=== PATIENT | female | born 1990 | race Caucasian/White ===

== ENCOUNTER 2021-12-14 15:55 | Outpatient (REF) | payer OTHER, SELFPAY ==
[2021-12-15 03:11] LABS: CT PCR NOT DETECTED (Not Detect.); NG PCR NOT DETECTED (Not Detect.)
[2021-12-15 09:24] LABS: BV Int Neg Control Negative (Negative); BV Int Pos Control Positive (Positive)
[2021-12-17 06:46] LABS: HPV mRNA E6/E7 rflx Not Detected (Not Detected)
== END 2021-12-14 15:56 | disposition home or self-care (01) ==
LOC: HO.LAB 15:55
PROVIDERS: Visit Provider Advanced Practice Midwife
DX: Z01.419 Encounter for gynecological examination (general) (routine) without abnormal findings (principal); Z11.3 Encounter for screening for infections with a predominantly sexual mode of transmission; Z11.51 Encounter for screening for human papillomavirus (HPV)
CPT/HCPCS: 87480; 87491; 87510; 87591; 87624; 87660; 88142

== ENCOUNTER 2025-02-07 12:08 | Outpatient (REF) | payer OTHER, SELFPAY ==
[2025-02-07 13:09] LABS: MANUAL DIFF FLAG NO
[2025-02-07 13:19] LABS: Hematocrit 32.1 % (37.0-47.0); Hemoglobin 10.2 g/dl (12.0-16.0); Imm Gran Abs Auto 0.02 X10*3/uL (0.00-0.03); Imm Gran Pct Auto 0.3 % (0.0-0.4); Lymphocytes Absolute Auto 1.1 X10*3/uL (1.2-4.9); Mean Corpuscular HGB Conc 31.8 g/dl (31.0-35.0); Mean Corpuscular Hemoglobin 25.0 pg (27.0-33.0); Mean Corpuscular Volume 78.7 fL (80.0-98.0); NRBC Abs Auto 0.000 X10*3/uL (0.0-0.012); NRBC Pct Auto 0.0 /100WBC (0.0-0.2); Platelet Count 481 X10*3/uL (160-400); Red Blood Count 4.08 X10*6/uL (4.20-5.50); White Blood Count 6.0 X10*3/uL (4.8-10.8)
[2025-02-07 13:41] LABS: Alanine Aminotransferase < 6 U/L (0-31); Albumin Level 3.0 g/dL (3.5-5.0); Alkaline Phosphatase 55 U/L (39-117); Anion Gap 11 (12-20); Aspartate Amino Transferase 20 U/L (5-31); Blood Urea Nitrogen 8 mg/dL (9-16); Calcium 8.5 mg/dL (8.4-10.2); Carbon Dioxide 28 mmol/L (22-29); Chloride 101 mmol/L (96-108); Estimated Glomerular Filt Rate > 60; Potassium 3.6 mmol/L (3.3-5.1); Sodium 136 mmol/L (135-145); Total Protein 7.8 g/dL (6.5-8.0)
== END 2025-02-07 12:09 | disposition home or self-care (01) ==
LOC: HO.10HDL 12:08
PROVIDERS: Visit Provider Internal Medicine
DX: Z00.00 Encounter for general adult medical examination without abnormal findings (principal); Z13.31 Encounter for screening for depression; R53.83 Other fatigue; M54.2 Cervicalgia; K64.4 Residual hemorrhoidal skin tags; E66.9 Obesity, unspecified
CPT/HCPCS: 36415; 80053; 85025

== ENCOUNTER 2025-02-20 14:47 | Outpatient (REF) | payer OTHER, SELFPAY ==
[2025-02-20 15:12] LABS: MANUAL DIFF FLAG NO
[2025-02-20 15:32] LABS: Hematocrit 31.4 % (37.0-47.0); Hemoglobin 9.6 g/dl (12.0-16.0); Imm Gran Abs Auto 0.02 X10*3/uL (0.00-0.03); Imm Gran Pct Auto 0.3 % (0.0-0.4); Lymphocytes Absolute Auto 1.2 X10*3/uL (1.2-4.9); Mean Corpuscular HGB Conc 30.6 g/dl (31.0-35.0); Mean Corpuscular Hemoglobin 24.0 pg (27.0-33.0); Mean Corpuscular Volume 78.5 fL (80.0-98.0); NRBC Abs Auto 0.000 X10*3/uL (0.0-0.012); NRBC Pct Auto 0.0 /100WBC (0.0-0.2); Platelet Count 314 X10*3/uL (160-400); Red Blood Count 4.00 X10*6/uL (4.20-5.50); White Blood Count 7.8 X10*3/uL (4.8-10.8)
[2025-02-20 16:16] LABS: Alanine Aminotransferase < 6 U/L (0-31); Albumin Level 3.2 g/dL (3.5-5.0); Alkaline Phosphatase 62 U/L (39-117); Anion Gap 13 (12-20); Aspartate Amino Transferase 20 U/L (5-31); Blood Urea Nitrogen 8 mg/dL (9-16); Calcium 8.5 mg/dL (8.4-10.2); Carbon Dioxide 25 mmol/L (22-29); Chloride 103 mmol/L (96-108); Estimated Glomerular Filt Rate > 60; Iron 23 mcg/dL (30-160); Percent Iron Saturation 15 % (15-50); Potassium 3.8 mmol/L (3.3-5.1); Sodium 137 mmol/L (135-145); Total Iron Binding Capacity 156 mcg/dL (228-428); Total Protein 8.3 g/dL (6.5-8.0); Unsaturated Iron Binding 133 ug/dL
[2025-02-20 16:35] LABS: Folate 10.7 ng/mL (> or = 4.0); Vitamin B12 465 pg/mL (200-900)
[2025-02-20 16:36] LABS: Thyroid Stimulating Hormone 0.63 uIU/mL (0.32-4.0)
--- OUTSIDE RECORDS SUMMARY | 2025-02-20 17:05 | XMS_ITS ---
Author Name [facility] Organization Unknown Care Team Organization Name Specialty Phone Email Start Date End Da [facility] ([facility] 2023 [facility] 04/21/2022
--- OUTSIDE RECORDS SUMMARY | 2025-02-20 17:06 | XMS_ITS | Patient Health Record ---
Author Organization [facility] Address [address] [place] [address] Care Team Providers Care Credit Risk Manager Name Role Phone Rowan Hannah Primary Care Provider Isma Ricahrds [phone] Allergies No Known Allergies Results Component Value Reference Range Notes T4 Thyroxine (Not yet review ed by provider) Interpretation: Performing Lab:[facility], [address] [place] [phone] Notes/Report: T4 Thyroxine 7.8 4.5-12.0 ug/dL Complete Blood Count Auto Di ff (Not yet reviewed by provider) Interpretation: Performing Lab:[facility], [address] [place] [phone] Notes/Report: White Blood Count 7.8 4.8-10.8 X10*3/uL Red Blood Count 4.00 4.20-5.50 X10*6/uL Hemoglobin 9.6 12.0-16.0 g/dl Hematocrit 31.4 37.0-47.0 % Mean Corpuscular Volume 78.5 80.0-98.0 fL Mean Corpuscular Hemoglobin 24.0 27.0-33.0 pg Mean Corpuscular HGB Conc 30.6 31.0-35.0 g/dl Red Cell Distribution Width 15.4 11.0-16.0 % Platelet Count 314 160-400 X10*3/uL Mean Platelet Volume 10.2 9.4-12.3 fL Neutrophils Percent Auto 71.9 45-73 % Imm Gran Pct Auto 0.3 0.0-0.4 % Lymphocytes Percent Auto 15.0 20-40 % Monocytes Percent Auto 9.0 2-11 % Eosinophils Percent Auto 3.2 0-4 % Basophils Percent Auto 0.6 0-2 % NRBC Pct Auto 0.0 0.0-0.2 /100WBC Neutrophils Absolute Auto 5.6 2.0-8.3 x10*3/u L Imm Gran Abs Auto 0.02 0.00-0.03 X10*3/uL Lymphocytes Absolute Auto 1.2 1.2-4.9 X10*3/u L Monocytes Absolute Auto 0.7 0.1-1.2 X10*3/uL Eosinophils Absolute Auto 0.3 0.0-0.4 X10*3/u L Basophils Absolute Auto 0.1 0.0-0.2 X10*3/uL NRBC Abs Auto 0.000 0.0-0.012 X10*3/uL Erythrocyte Sedimentation Ra te (Not yet reviewed by provider) Interpretation: Performing Lab:[address] [phone] Notes/Report: Erythrocyte Sedimentation Rate 92 0-20 MM/HR Patients with polycythemia and many hemoglobin abnormalities may have depressed sed rates whereas patients with anemia may have elevated sed rates. Comprehensive Met. Panel (No t yet reviewed by provider) Interpretation: Performing Lab:[address] [address] Notes/Report: Sodium 137 135-145 mmol/L Potassium 3.8 3.3-5.1 mmol/L Slight Hemoly sis.Interpret result with caution. Chloride 103 96-108 mmol/L Carbon Dioxide 25 22-29 mmol/L Anion Gap 13 12-20 Blood Urea Nitrogen 8 9-16 mg/dL Creatinine 0.93 0.5-1.4 mg/dL Estimated Glomerular Filt Rate > 60 Chronic Kidney Disease: Estimated GFR < 60 mL/min/1.73m2 Severe Kidney Disease: Estimated GFR < 15 mL/min/1.73m2 Glucose Random 81 60-115 mg/dL Calcium 8.5 8.4-10.2 mg/dL Bilirubin Total 0.3 0.0-1.0 mg/dL Aspartate Amino Transferase 20 5-31 U/L Slight Hemolysis.Interpret result with caution. Alanine Aminotransferase < 6 0-31 U/L Total Protein 8.3 6.5-8.0 g/dL Albumin Level 3.2 3.5-5.0 g/dL Alkaline Phosphatase 62 39-117 U/L Liver Panel (Not yet reviewe d by provider) Interpretation: Performing Lab:[address] [address] Notes/Report: Bilirubin Direct 0.1 0.0-0.5 mg/dL IRON PROFILE (Not yet review ed by provider) Interpretation: Performing Lab:[address] [address] Notes/Report: Iron 23 30-160 mcg/dL Slight Hemolys is.Interpret result with caution. Total Iron Binding Capacity 156 228-428 mcg/d L Percent Iron Saturation 15 15-50 % Unsaturated Iron Binding 133 C Reactive Protein (Not yet reviewed by provider) Interpretation: Performing Lab:[address] [address] Notes/Report: C Reactive Protein 6.27 < or = 0.50 mg/dL Vitamin B12 (Not yet reviewe d by provider) Interpretation: Performing Lab:[address] [address] Notes/Report: Vitamin B12 465 200-900 pg/mL NORMAL 200-900 PG/ML INDETERMINATE 160-199 PG/ML DEFICIENT < 160 PG/ML Folate (Not yet reviewed by provider) Interpretation: Performing Lab:[address] [address] Notes/Report: Folate 10.7 > or = 4.0 ng/mL Reference Values: > or = 4.0 ng/mL < 4.0 ng/mL suggests folate deficiency Methotrexate, aminopterin and folinic acid (leucovorin) are chemotherapeutic agents whose molecular structures are similar to folate; therefore, the Staff Development Manager folate assay cannot be used for patients using these drugs. Thyroid Stimulating Hormone (Not yet reviewed by provider) Interpretation: Performing Lab:[address] [address] Notes/Report: Thyroid Stimulating Hormone 0.63 0.32-4.0 uIU/ mL TSH 3rd Generation ([facility]) Reason For Referral No Information Medications Medication SIG (Take, Route, Fr equency, [...] Status W/U Status Risk Notes Problem Diarrhea (58783197) Diarrhea (R19.7) Active confirmed Problem Weight loss (074681168) Weight loss (R63.4) Active confirmed Problem Fatigue (15933756) Other fatigue (R53.83) Active confirmed Vital Signs Temperature 98.3 degrees Fahrenheit 02/20/2025 Blood pressure diastolic 01 mm Hg 02/20/2025 Height 62 in 02/20/2025 Blood pressure systolic 001 mm Hg 02/20/2025 Weight 139.4 lbs 02/20/2025 BMI 25.49 kg/m2 02/20/2025 Procedures Procedure Date Ordered Date Performed Result Body Sit e COLONOSCOPY 02/20/2025 N/A Encounters Encounter Location Date Provider Diagnosis [facility] [address] [place] [address] 02/20/2025 Isma Sharp Diarrhea R19.7 ; Weight loss R63.4 and Other fatigue R53.83 Assessments Encounter Date Diagnosis (ICD Code) Assessment Notes Treatment Notes Treatment Clinical Notes Section Notes 02/20/2025 Diarrhea (ICD-10 - R19.7) 02/20/2025 Weight loss (ICD-10 - R63.4) 02/20/2025 Other fatigue (ICD-10 - R53.83) Plan Of Treatment Pending Test Test Name Order Date COLONOSCOPY 02/20/2025 CHEM 7 PROFILE 02/20/2025 LIVER PROFILE 02/20/2025 TSH (THYROID STIMULATING HORMONE) 2024 IRON + IBC (FE) 02/20/2025 CRP 02/20/2025 CBC w DIFF 02/20/2025 SED RATE (ESR) 02/20/2025 Complete Blood Count Auto Diff Erythrocyte Sedimentation Rate Comprehensive Met. Panel 02/20/2025 Liver Panel 02/20/2025 IRON PROFILE 02/20/2025 C Reactive Protein 02/20/2025 Vitamin B12 and Folate 02/20/2025 Vitamin B12 02/20/2025 Folate 02/20/2025 T4 Thyroxine 02/20/2025 Thyroid Stimulating Hormone 02/20/2025 CDiff with Reflex to PCR 02/20/2025 Giardia Ag Stool EIA 02/20/2025 Calprotectin, Fecal 02/20/2025 GI PANEL 02/20/2025 Celiac Disease Panel 02/20/2025 Next Appt Details Provider Name:Isma Lowery Sharp , 04/26/2025 02:30:00 PM, [address] [place] [address] , [place], [place], [phone], Insurance Providers Payer Name Payer Address Payer Phone Subscriber Number Group Number Insured Name Patient Relationship to Insured Coverage Start Date Coverage End Date [facility] [address] [facility] [place] [phone] [id number] REMINGTON LR Self - patient is the insured
[2025-02-21 16:53] LABS: Immunoglobulin A 785 mg/dL (47-310)
== END 2025-02-20 14:48 | disposition home or self-care (01) ==
LOC: HO.LAB 14:47
PROVIDERS: PCP Internal Medicine; Visit Provider Internal Medicine
DX: R53.83 Other fatigue (principal); R19.7 Diarrhea, unspecified; R63.4 Abnormal weight loss; Z13.0 Encounter for screening for diseases of the blood and blood-forming organs and certain disorders involving the immune mechanism; Z01.84 Encounter for antibody response examination
CPT/HCPCS: 36415; 80053; 82248; 82607; 82746; 82784; 83540; 84436; 84443; 85025; 85652; 86140; 86364

== ENCOUNTER 2025-02-22 12:51 | Outpatient (REF) | payer OTHER, SELFPAY ==
[2025-02-22 15:15] LABS: CDiff Gene PCR NEGATIVE (Negative)
[2025-02-22 16:05] LABS: E. coli EAEC Not Detected (Not Detect.); E. coli EPEC Not Detected (Not Detect.); E. coli ETEC Not Detected (Not Detect.); E. coli STEC Not Detected (Not Detect.); Shigella sp./EIEC Not Detected (Not Detect.)
[2025-02-28 21:09] LABS: Calprotectin, Fecal >8000 mcg/g
== END 2025-02-22 12:52 | disposition home or self-care (01) ==
LOC: HO.LNP 12:51
PROVIDERS: Visit Provider Internal Medicine
DX: R53.83 Other fatigue (principal); R19.7 Diarrhea, unspecified; R63.4 Abnormal weight loss
CPT/HCPCS: 83993; 87329; 87493; 87507

== ENCOUNTER 2025-02-25 12:35 | Day surgery (SDC) | payer OTHER, SELFPAY ==
--- OUTSIDE RECORDS SUMMARY | 2025-02-20 09:40 | XMS_ITS ---
Author Organization [facility] Address [address] [place] [address] Care Team Providers Care Cut Off Worker Name Role Phone Rowan Hannah Primary Care Provider UnavailIsma Tee [phone] Allergies No Known Allergies Results Component Value Reference Range Notes Celiac Disease Panel (Not ye t reviewed by provider) Interpretation: Performing Lab:[facility], [address] [place] [phone] Notes/Report: Immunoglobulin A 785 47-310 mg/dL THIS TEST WAS PERFORMED AT: [facility] [address] [place] [phone] DANIA LOVE MD Transglutaminase IgA <1.0 Value Interpretation ----- <15.0 Antibody not detected > or = 15.0 Antibody detected Celiac Disease Panel Interp. SEE NOTE No serological evidence of celiac disease. Total serum IgA is elevated. Consider mucosal inflammatory conditions or underlying gammopathy. T4 Thyroxine Reviewed date:02/20/2025 05:51:49 PM Interpretation: Performing Lab:[facility], [address] [place] [phone] Notes/Report: T4 Thyroxine 7.8 4.5-12.0 ug/dL REASON FOR VISIT Patient presents today for diarrhea Medications Medication SIG (Take, Route, Fr equency, Duration) Notes Start Date End Date Status Loperamide HCl 2 MG 1 or 2 Orally every 4 to 6 hours if needed for diarrhea for 30 days 02/20/2025 Active Immunizations Vaccine Route Administration Date Status Comme nts Influenza Unknown 02/20/2025 Refused Social History Tobacco Use: Social History Observation Description Date Details (start date - stop date) Never Smoker NA - NA Tobacco Control (Standard) Question Answer Notes Tobacco use: Nonsmoker AUDIT-C (Standard) Question Answer Notes Did you have a drink contain ing alcohol in the past year? Yes How often did you have a dri nk containing alcohol in the past year? Monthly or less (1 point) How many drinks did you have on a typical day when you were drinking in the past year? 3 or 4 drinks (1 point) How often did you have six o r more drinks on one occasion in the past year? Never (0 point) Points 2 Interpretation Negative Problems Problem Type SNOMED Code ICD Code Onset Dates Problem Status W/U Status Risk Notes Problem Diarrhea (21769593) Diarrhea (R19.7) Active confirmed Problem Weight loss (637183642) Weight loss (R63.4) Active confirmed Problem Fatigue (50486380) Other fatigue (R53.83) Active confirmed Vital Signs Temperature 98.3 degrees Fahrenheit 02/21/20 25 Blood pressure systolic 001 mm Hg 02/21/20 25 Blood pressure diastolic 01 mm Hg 025 Height 62 in 02/20/2025 Weight 139.4 lbs 02/20/2025 BMI 25.49 kg/m2 02/20/2025 Procedures Procedure Date Ordered Date Performed Result Body Sit e COLONOSCOPY 02/20/2025 N/A Encounters Encounter Location Date Provider Diagnosis [facility] [address] [place] [address] 02/20/2025 Isma Sharp Diarrhea R19.7 ; Weight loss R63.4 and Other fatigue R53.83 Assessments Encounter Date Diagnosis (ICD Code) Assessment Notes Treatment Notes Treatment Clinical Notes Section Notes 02/20/2025 Diarrhea (ICD-10 - R19.7) Given Remington's clinical history of persistent and worsening diarrhea symptoms with associated weight loss and fatigue, as well as recent laboratories with a somewhat low albumin, mild anemia, and elevated platelet count, I would be most concerned about underlying inflammatory bowel disease. We did review that and I shall schedule her for a colonoscopy for further evaluation in that regard. Full consent has been attained for this, including risks of bleeding and perforation. The procedure will be done with monitored anesthesia care. However, prior to that, I shall check stool specimens for any type of infection including C. difficile. I shall check a stool specimen for fecal calprotectin to indirectly assess for inflammatory bowel disease as well. I shall check the below laboratories including Inflammatory markers, anemia workup, celiac disease laboratories and thyroid studies. I have given her a new prescription to use loperamide as needed. I did advise her to contact me prior to the colonoscopy if she develops any worsening symptoms such as abdominal pain, fevers, and/or bleeding. I did advise her to go to the ER if things become significantly worse and she is worried about her symptoms. Remington and her sister were comfortable with this plan. Thank you again for allowing me to participate in Remington's care. I shall continue to keep you advised of her progress. 02/20/2025 Weight loss (ICD-10 - R63.4) Given Remington's clinical history of persistent and worsening diarrhea symptoms with associated weight loss and fatigue, as well as recent laboratories with a somewhat low albumin, mild anemia, and elevated platelet count, I would be most concerned about underlying inflammatory bowel disease. We did review that and I shall schedule her for a colonoscopy for further evaluation in that regard. Full consent has been attained for this, including risks of bleeding and perforation. The procedure will be done with monitored anesthesia care. However, prior to that, I shall check stool specimens for any type of infection including C. difficile. I shall check a stool specimen for fecal calprotectin to indirectly assess for inflammatory bowel disease as well. I shall check the below laboratories including Inflammatory markers, anemia workup, celiac disease laboratories and thyroid studies. I have given her a new prescription to use loperamide as needed. I did advise her to contact me prior to the colonoscopy if she develops any worsening symptoms such as abdominal pain, fevers, and/or bleeding. I did advise her to go to the ER if things become significantly worse and she is worried about her symptoms. Remington and her sister were comfortable with this plan. Thank you again for allowing me to participate in Remington's care. I shall continue to keep you advised of her progress. 02/20/2025 Other fatigue (ICD-10 - R53.83) Given Remington's clinical history of persistent and worsening diarrhea symptoms with associated weight loss and fatigue, as well as recent laboratories with a somewhat low albumin, mild anemia, and elevated platelet count, I would be most concerned about underlying inflammatory bowel disease. We did review that and I shall schedule her for a colonoscopy for further evaluation in that regard. Full consent has been attained for this, including risks of bleeding and perforation. The procedure will be done with monitored anesthesia care. However, prior to that, I shall check stool specimens for any type of infection including C. difficile. I shall check a stool specimen for fecal calprotectin to indirectly assess for inflammatory bowel disease as well. I shall check the below laboratories including Inflammatory markers, anemia workup, celiac disease laboratories and thyroid studies. I have given her a new prescription to use loperamide as needed. I did advise her to contact me prior to the colonoscopy if she develops any worsening symptoms such as abdominal pain, fevers, and/or bleeding. I did advise her to go to the ER if things become significantly worse and she is worried about her symptoms. Remington and her sister were comfortable with this plan. Thank you again for allowing me to participate in Remington's care. I shall continue to keep you advised of her progress. Plan Of Treatment Medication Medication Name Sig Start Date Stop Date Notes Loperamide HCl 2 MG 1 or 2 Orally every 4 to 6 hours if needed for diarrhea for 30 days 02/20/2025 Pending Test Test Name Order Date COLONOSCOPY 02/20/2025 CHEM 7 PROFILE 02/20/2025 LIVER PROFILE 02/20/2025 TSH (THYROID STIMULATING HORMONE) 2024 IRON + IBC (FE) 02/20/2025 CRP 02/20/2025 CBC w DIFF 02/20/2025 SED RATE (ESR) 02/20/2025 Vitamin B12 and Folate 02/20/2025 CDiff with Reflex to PCR 02/20/2025 Giardia Ag Stool EIA 02/20/2025 Calprotectin, Fecal 02/20/2025 GI PANEL 02/20/2025 Celiac Disease Panel 02/20/2025 Next Appt Details Provider Name:Isma Beverley Sharp , 02/25/2025 02:30:00 PM, [address] [place] [address] , [place], [place], [phone], Progress Notes * REMINGTON DE DIOS MDOB:[birth year] (34 yo F)Acc No.[id number]:02/20/2025 Progress Notes Patient: REMINGTON HAWKINS Provider: Tuan Sharp MD :1990 A ge:34 Y S ex:Female Date:02/20/2025 Address:[address] [place] [address] [id number] Pcp:Rowan Hannah Subjective: * Chief Complaints: * 1 . Patient presents today for diarrhea. * HPI: i ncontinence: I saw Remington in consultation today in regard to further evaluation of her persistent diarrhea, fatigue, and weight loss. She was accompanied by her sister, Eva. As you know, Nancy is a healthy 34-year-old female who describes the onset of persistent and worsening GI symptoms since November. Since that time she has been experiencing frequent episodes of diarrhea both during the day and at night which awaken her. She has some lower abdominal cramping from this but no other abdominal pains. She has not noticed any hematochezia, melena, nor any significant amounts of mucus. As time has gone on her bowel movement frequency has increased and she has lost about 30 pounds. She has also developed fatigue. She describes intermittent episodes of urgency with the bowel movements as well. She describes that prior to the onset of her symptoms in November she never had any particular GI complaints. She was treated empirically with a course of Flagyl in November as she had related an illness in her dogs and the thought apparently was that she might have contracted an illness from them. She was also treated with a course of Augmentin and Imodium in January for the symptoms. She did develop COVID toward the end of December which seemed to the diarrhea as well. She also developed strep throat which was treated with antibiotics as well. During these past few months she has not experienced any particular upper GI symptoms such as nausea, vomiting, significant heartburn, dysphagia, odynophagia, upper abdominal pain, jaundice, nor any significant anorexia. She has not experienced any fevers or urinary symptoms. She denies any known family history of inflammatory bowel disease, colorectal cancer, nor celiac disease. She denies any significant travels or ill contacts. She does not take any significant steffen of NSAIDs. She has about 1 cup of coffee per day and does not use any significant steffen of dairy. Of note she has not experienced any relief of her symptoms with the use of the above-mentioned antibiotics and loperamide. However she was only taking 1 loperamide a day. Her laboratories on February 07 revealed normal chemistries and renal function, and normal LFTs. Her albumin was low at 3.0. A CBC showed a hemoglobin of 10.2 with MCV of 79, elevated platelet count of 481,000, and white blood cell count of 6,000. * Medical History: M edical History Verified. * Family History: F ather: alive, diagnosed with HTN (hypertension). M other: alive. NO family history of colon cancer or liver cancer. * Social History: T obacco Use: T obacco Control (Standard) T obacco use: N onsmoker. M iscellaneous: M arital status: single. Occupation: Works full-time sales administration. D rug/Alcohol: A DOMINIQUE-C (Standard) D id you have a drink containing alcohol in the past year? Y es,?How often did you have a drink containing alcohol in the past year? M onthly or less (1 point), H ow many drinks did you have on a typical day when you were drinking in the past year? 3 or 4 drinks (1 point), H ow often did you have six or more drinks on one occasion in the past year? N ever (0 point), P oints 2 , I nterpretation N egative. * Medications: N one * Allergies: N .K.D.A. Objective: * Vitals: W t:139.4lbs, Ht:62in, BMI:25.49Index, BP:001/01mm Hg, Temp:98.3, Ht-cm: 157.48, Wt-k.23. Assessment: * Assessment: 1. D iarrhea - R19.7 (Primary) 2 . W eight loss - R63.4 3 .?Other fatigue - R53.83 Given Remington's clinical his tory of persistent and worsening diarrhea symptoms with associated weight loss and fatigue, as well as recent laboratories with a somewhat low albumin, mild anemia, and elevated platelet count, I would be most concerned about underlying inflammatory bowel disease. We did review that and I shall schedule her for a colonoscopy for further evaluation in that regard. Full consent has been attained for this, including risks of bleeding and perforation. The procedure will be done with monitored anesthesia care. However, prior to that, I shall check stool specimens for any type of infection including C. difficile. I shall check a stool specimen for fecal calprotectin to indirectly assess for inflammatory bowel disease as well. I shall check the below laboratories including Inflammatory markers, anemia workup, celiac disease laboratories and thyroid studies. I have given her a new prescription to use loperamide as needed. I did advise her to contact me prior to the colonoscopy if she develops any worsening symptoms such as abdominal pain, fevers, and/or bleeding. I did advise her to go to the ER if things become significantly worse and she is worried about her symptoms. Remington and her sister were comfortable with this plan. Thank you again for allowing me to participate in Remington's care. I shall continue to keep you advised of her progress. Plan: * Treatment: Value Reference Range I mmunoglobulin A 785 A 47-310 - mg/dL * T ransglutaminase IgA <1.0 - U/mL * C eliac Disease Panel Interp. SEE NOTE - ?LAB: T4 Thyroxine (Collection Date & Time - 02/20/2025 03:09 PM)* Value Reference Range T 4 Thyroxine 7.8 4.5-12.0 - ug/dL ?Procedure: COLONOSCOPY* with MACsched for 04/26/25 at 2:30 pmmiralax 2.?Weight loss?LAB: CHEM 7 PROFILE ?LAB: LIVER PROFILE ?LAB: TSH (THYROID STIMULATING HORMONE) ?LAB: IRON + IBC (FE) ?LAB: CRP ?LAB: CBC w DIFF ?LAB: SED RATE (ESR) ?LAB: Vitamin B12 and Folate ?LAB: CDiff with Reflex to PCR ?LAB: Giardia Ag Stool EIA ?LAB: Calprotectin, Fecal ?LAB: GI PANEL ?LAB: Celiac Disease Panel (Collection Date & Time - 02/20/2025 03:09 PM)* Value Reference Range I mmunoglobulin A 785 A 47-310 - mg/dL * T ransglutaminase IgA <1.0 - U/mL * C eliac Disease Panel Interp. SEE NOTE - ?LAB: T4 Thyroxine (Collection Date & Time - 02/20/2025 03:09 PM)* Value Reference Range T 4 Thyroxine 7.8 4.5-12.0 - ug/dL ?Procedure: COLONOSCOPY* with MACsched for 04/26/25 at 2:30 pmmiralax 3.?Other fatigue?LAB: CHEM 7 PROFILE ?LAB: LIVER PROFILE ?LAB: TSH (THYROID STIMULATING HORMONE) ?LAB: IRON + IBC (FE) ?LAB: CRP ?LAB: CBC w DIFF ?LAB: SED RATE (ESR) ?LAB: Vitamin B12 and Folate ?LAB: CDiff with Reflex to PCR ?LAB: Giardia Ag Stool EIA ?LAB: Calprotectin, Fecal ?LAB: GI PANEL ?LAB: Celiac Disease Panel (Collection Date & Time - 02/20/2025 03:09 PM)* Value Reference Range I mmunoglobulin A 785 A 47-310 - mg/dL * T ransglutaminase IgA <1.0 - U/mL * C eliac Disease Panel Interp. SEE NOTE - ?LAB: T4 Thyroxine (Collection Date & Time - 02/20/2025 03:09 PM)* Value Reference Range T 4 Thyroxine 7.8 4.5-12.0 - ug/dL ?Procedure: COLONOSCOPY* with MACsched for 04/26/25 at 2:30 pmmiralax * Immunizations: Influenza (Not administered - Refused: Patient decision) * Procedure Codes: [id number] DIAGNOSTIC COLONOSCOPY * Preventive Medicine: Counseling: C are goal follow-up plan: A choco Normal BMI Follow-up D ietary management education, guidance, and counseling, B TX management provided Y es. * * The named appointment provid er may or may not be the originator of this progress note, and it is not deemed complete until electronically signed by the appointment provider. Sign off status: Pending * Provider: Tuan Sharp MD Date: 0 02/20/2025 Generated for Yann ovalles/Néstor/eTsadiaitting on: 0 02/22/2025 12:54 PM EDT History and Physical Notes * HPI (History of Present Illness) Category Sub-Category Detail Notes Category Not es incontinence I saw Remington in consultation today in regard to further evaluation of her persistent diarrhea, fatigue, and weight loss. She was accompanied by her sister, Eva. As you know, Nancy is a healthy 34-year-old female who describes the onset of persistent and worsening GI symptoms since November. Since that time she has been experiencing frequent episodes of diarrhea both during the day and at night which awaken her. She has some lower abdominal cramping from this but no other abdominal pains. She has not noticed any hematochezia, melena, nor any significant amounts of mucus. As time has gone on her bowel movement frequency has increased and she has lost about 30 pounds. She has also developed fatigue. She describes intermittent episodes of urgency with the bowel movements as well. She describes that prior to the onset of her symptoms in November she never had any particular GI complaints. She was treated empirically with a course of Flagyl in November as she had related an illness in her dogs and the thought apparently was that she might have contracted an illness from them. She was also treated with a course of Augmentin and Imodium in January for the symptoms. She did develop COVID toward the end of December which seemed to the diarrhea as well. She also developed strep throat which was treated with antibiotics as well. During these past few months she has not experienced any particular upper GI symptoms such as nausea, vomiting, significant heartburn, dysphagia, odynophagia, upper abdominal pain, jaundice, nor any significant anorexia. She has not experienced any fevers or urinary symptoms. She denies any known family history of inflammatory bowel disease, colorectal cancer, nor celiac disease. She denies any significant travels or ill contacts. She does not take any significant steffen of NSAIDs. She has about 1 cup of coffee per day and does not use any significant steffen of dairy. Of note she has not experienced any relief of her symptoms with the use of the above-mentioned antibiotics and loperamide. However she was only taking 1 loperamide a day. Her laboratories on February 07 revealed normal chemistries and renal function, and normal LFTs. Her albumin was low at 3.0. A CBC showed a hemoglobin of 10.2 with MCV of 79, elevated platelet count of 481,000, and white blood cell count of 6,000.
--- OUTSIDE RECORDS SUMMARY | 2025-02-22 12:55 | XMS_ITS | Patient Health Record ---
Author Organization [facility] Address [address] [place] [address] Care Team Providers Care Survey Questionnaire Designer Name Role Phone Rowan Hannah Primary Care Provider Isma Richards [phone] Allergies No Known Allergies Results Component Value Reference Range Notes T4 Thyroxine Reviewed date:02/20/2025 05:51:49 PM Interpretation: Performing Lab:[facility], [address] [place] [phone] Notes/Report: T4 Thyroxine 7.8 4.5-12.0 ug/dL Celiac Disease Panel (Not ye t reviewed by provider) Interpretation: Performing Lab:[facility], [address] [place] [phone] Notes/Report: Immunoglobulin A 785 47-310 mg/dL THIS TEST WAS PERFORMED AT: [facility] [address] [place] [phone] DANIA LOVE MD Transglutaminase IgA <1.0 Value Interpretation ----- <15.0 Antibody not detected > or = 15.0 Antibody detected Celiac Disease Panel Interp. SEE NOTE No serological evidence of celiac disease. Total serum IgA is elevated. Consider mucosal inflammatory conditions or underlying gammopathy. Complete Blood Count Auto Di ff (Not yet reviewed by provider) Interpretation: Performing Lab:[facility], [address] [place] [phone] Notes/Report: White Blood Count 7.8 4.8-10.8 X10*3/uL [...] (Not yet reviewed by provider) Interpretation: Performing Lab:[address] [address] Notes/Report: Erythrocyte Sedimentation Rate 92 0-20 MM/HR Patients with polycythemia and many hemoglobin abnormalities may have depressed sed rates whereas patients with anemia may have elevated sed rates. Comprehensive Met. Panel Reviewed date:02/20/2025 05:51:08 PM Interpretation: Performing Lab:[address] [address] Notes/Report: Sodium 137 135-145 mmol/L Potassium 3.8 [...] Alkaline Phosphatase 62 39-117 U/L Liver Panel Reviewed date:02/20/2025 05:50:07 PM Interpretation: Performing Lab:[facility], [address] [place] [phone] Notes/Report: Bilirubin Direct 0.1 0.0-0.5 mg/dL IRON PROFILE (Not yet review ed by provider) Interpretation: Performing Lab:[address] [address] Notes/Report: Iron 23 30-160 mcg/dL Slight Hemolys is.Interpret result with caution. Total Iron Binding Capacity 156 228-428 mcg/d L Percent Iron Saturation 15 15-50 % Unsaturated Iron Binding 133 C Reactive Protein (Not yet reviewed by provider) Interpretation: Performing Lab:[facility], [address] [place] [phone] Notes/Report: C Reactive Protein 6.27 < or = 0.50 mg/dL Vitamin B12 Reviewed date:02/20/2025 05:51:23 PM Interpretation: Performing Lab:[address] [address] Notes/Report: Vitamin B12 465 200-900 pg/mL NORMAL 200-900 PG/ML INDETERMINATE 160-199 PG/ML DEFICIENT < 160 PG/ML Folate Reviewed date:02/20/2025 05:51:16 PM Interpretation: Performing Lab:[facility], [address] [place] [phone] Notes/Report: Folate 10.7 > or = 4.0 ng/mL Reference Values: > or = 4.0 ng/mL < 4.0 ng/mL suggests folate deficiency Methotrexate, aminopterin and folinic acid (leucovorin) are chemotherapeutic agents whose molecular structures are similar to folate; therefore, the Failure Analysis Technician folate assay cannot be used for patients using these drugs. Thyroid Stimulating Hormone Reviewed date:02/20/2025 05:49:25 PM Interpretation: Performing Lab:[facility], [address] [place] [phone] Notes/Report: Thyroid Stimulating Hormone 0.63 0.32-4.0 uIU/ [...] Status W/U Status Risk Notes Problem Diarrhea (14298590) Diarrhea (R19.7) Active confirmed Problem Weight loss (949384551) Weight loss (R63.4) Active confirmed Problem Fatigue (61242784) Other fatigue (R53.83) Active confirmed Vital Signs Temperature 98.3 degrees Fahrenheit 02/20/2025 Blood pressure diastolic 01 mm Hg 02/20/2025 Height 62 in 02/20/2025 Blood pressure systolic 001 mm Hg 02/20/2025 Weight 139.4 lbs 02/20/2025 BMI 25.49 kg/m2 02/20/2025 Procedures Procedure Date Ordered Date Performed Result Body Sit e COLONOSCOPY 02/20/2025 N/A Encounters Encounter Location Date Provider [facility] [address] [place] [address] 02/20/2025 Isma Sharp Diarrhea R19.7 ; Weight loss R63.4 and Other fatigue R53.83 [facility] [address] [place] [address] 02/21/2025 Isma Sharp Assessments Encounter Date Diagnosis (ICD Code) Assessment [...] advised of her progress. Plan Of Treatment Pending Test Test Name Order Date COLONOSCOPY 02/20/2025 CHEM 7 PROFILE 02/20/2025 LIVER PROFILE 02/20/2025 TSH (THYROID STIMULATING HORMONE) 2024 IRON + IBC (FE) 02/20/2025 CRP 02/20/2025 CBC w DIFF 02/20/2025 SED RATE (ESR) 02/20/2025 Complete Blood Count Auto Diff Erythrocyte Sedimentation Rate IRON PROFILE 02/20/2025 C Reactive Protein 02/20/2025 Vitamin B12 and Folate 02/20/2025 CDiff with Reflex to PCR 02/20/2025 Giardia Ag Stool EIA 02/20/2025 Calprotectin, Fecal 02/20/2025 GI PANEL 02/20/2025 Celiac Disease Panel 02/20/2025 Next Appt Details Provider Name:Isma Sharp , 02/25/2025 02:30:00 PM, [address] [place] [address] , [place], [place], [phone], Insurance Providers Payer Name Payer Address Payer Phone Subscriber Number Group Number Insured Name Patient Relationship to Insured Coverage Start Date Coverage End Date [facility] [address] [place] [phone] [id number] REMINGTON LR Self - patient is the insured
--- NOTE | 2025-02-22 13:33 | HO.ANESPROP2 ---
Documented by User: Francine Duque NP 02/22/25 13:35 HPI - Anesthesia Eval Consult details Narrative: 34 yr old female for colonoscopy [facility] Active Problems Active Problems: All Active Problems (Updated 12/28/21 @ 16:44 by Rahel Mejia CNM) BCP ( control pills) initiation (Acute) Cervical cancer screening (Acute) Screen for sexually transmitted diseases (Acute) Well woman exam with routine gynecological exam (Acute) Social History Social History Are you a primary career and transition teacher to a significant other at home: No Do you presently have visiting nurse or other home services: No Alcohol intake: current Alcohol intake frequency: a few times a month Patient Tobacco Use Status: Former Tobacco user Use of substances other than those prescribed or required for medical reasons: No Substance Use Type: Marijuana Substance Use Frequency: Socially Have you been hit, kicked, punched, or otherwise hurt by someone within the past year? If so, by whom?: No Are you DNR?: No Advance Directives: No Advance Directives Information Provided: Yes Patient : No FDLMP: 01/24/2025 : No Poor oral hygiene: No Meds Allergies Allergy/AdvReac Type Severity Reaction Status Date / Time No Known Allergies Allergy Verified 02/25/25 13:38 Exam Pertinent Lab Results Pertinent Lab Results: Laboratory Tests 02/20/25 15:09 WBC 7.8 RBC 4.00 L Hgb 9.6 L Hct 31.4 L Plt Count 314 D Sodium 137 Potassium 3.8 BUN 8 L Creatinine 0.93 Documented by User: Anthony Pena MD 02/25/25 16:41 [facility] Past Medical History Cognitive capacity: normal Functional capacity: independent ambulation Family History Family history of problems with anesthesia: No Surgical History History of Problems with Anesthesia: No Social History Social History Are you a primary career and transition teacher to a significant other at home: No Do you presently have visiting nurse or other home services: No Alcohol intake: current Alcohol intake frequency: a few times a month Patient Tobacco Use Status: Former Tobacco user Use of substances other than those prescribed or required for medical reasons: No Substance Use Type: Marijuana Substance Use Frequency: Socially Have you been hit, kicked, punched, or otherwise hurt by someone within the past year? If so, by whom?: No Are you DNR?: No Advance Directives: No Advance Directives Information Provided: Yes Patient : No FDLMP: 01/24/2025 : No Poor oral hygiene: No Travel History Recent Travel in [facility] Within the Last 8 Weeks: No Exposure or Possible Exposure to Illness During Travel: No History of Being in a Healthcare Facility as a Patient, Worker, or Visitor during Travel: No Medical Treatment Received for Symptoms/Illness Related to Travel: No Meds Allergies Allergy/AdvReac Type Severity Reaction Status Date / Time No Known Allergies Allergy Verified 02/25/25 13:38 Exam Exam Date and Time: 02/25/2025 Airway Loose/Missing/Broken Teeth: No Heart: rrr Lungs: cts Assessment and Plan Assessment Anesthesia Assessment: Anesthesia Plan Discussed, Smoking Cess. Discussed and Chart Reviewed Final Anesthetic Review Family History of Problems with Anesthesia: No History of Problems with Anesthesia: No NPO: No Final Preanesthetic Review: No Changes in Pt Med Stat, Meds/Allgs Chart Reviewed, Consent Obtained/Reviewed and Anes Risks/Benef Reviewed Patient Risk: Low Procedure Risk: Low Assessment/Block/Sedation in SS: Assess/Block/Sedation-SS Anesthetic Plan Anesthetic Plan: GA Disposition: Standard PACU and Extended PACU
[2025-02-25 13:48] VITALS: BP 146/91; PULSE 89; RESP 12; TEMP 36.7; O2SAT 100; BMI 24.1
[2025-02-25 13:52] LABS: UPreg QC Valid YES
[2025-02-25] MEDS: Lactated Ringers 1,000 ML 100 ML IVCONT (14:02)
[2025-02-25 17:07] VITALS: BP 117/75; PULSE 91; RESP 20; TEMP 36.6
[2025-02-25 17:23] VITALS: BP 130/85; PULSE 83; RESP 20; TEMP 36.6; O2SAT 100
--- NOTE | 2025-02-25 17:37 | P.BOP_ITS ---
Brief Operative Note Date of Service: 02/25/25 Pre-op diagnosis: Diarrhea, anemia, weight loss Post-op diagnosis: other (Crohn's colitis) Procedure: Colonoscopy to the cecum and TI with biopsies Surgeon: Isma Sharp MD Anesthesia: MAC Was an Bag Press Operator used for this Procedure?: No Estimated blood loss (mL): 2.0 Pathology: other (A. Terminal ileum B. Very distal TI C. Ileocecal valve D. Ascending colon E. Transverse colon F. Descending colon G. Sigmoid colon H. Rectum) Condition: stable Disposition: PACU
[2025-02-25 18:10] LABS: INTERNATIONAL NORM RATIO 1.2 (0.9-1.1); Prothrombin Time 13.8 SEC (10.9-12.4)
--- NOTE | 2025-02-26 02:31 | OP_ITS ---
DATE OF SERVICE: 02/25/2025 SURGEON: Isma Sharp MD PREOPERATIVE DIAGNOSIS: POSTOPERATIVE DIAGNOSIS: PROCEDURE PERFORMED: ESTIMATED BLOOD LOSS: COMPLICATIONS: ANESTHESIA: Monitored anesthesia care. ASSISTANTS: SPECIMENS: PREOPERATIVE DIAGNOSES: Diarrhea, weight loss, and anemia. POSTOPERATIVE DIAGNOSES: Diarrhea, weight loss, anemia, Crohn's disease involving entire colon from rectum to ileocecal valve. DESCRIPTION OF PROCEDURE: The patient was placed in left lateral decubitus position. The digital rectal exam revealed external hemorrhoidal tissue, but no sign of any other perianal disease such as fistulae. The digital exam was nontender, although she was under anesthesia. There was mucus on the examining glove. The Olympus video pediatric colonoscope was entered into the rectum and advanced easily to the cecum. There was a great deal of mucus throughout the entire colon. Once in the cecum, after irrigation, I was able to visualize the cecal pouch with appendiceal orifice. The ileocecal valve was cannulated to the terminal ileum. The scope was advanced at least 10 cm. The terminal ileal mucosa appeared normal and biopsies were obtained. The very distal most portion of the ileum right at the junction of the ileocecal valve did show some ulcerations and biopsies were obtained from there as well. The scope was withdrawn back into the colon. After irrigation, I was able to achieve a good visualization of the cecum and ileocecal valve. The ileocecal valve had multiple ulcerations on it and biopsies were obtained. There was no component of any stricture or stenosis. The cecal pouch otherwise appeared basically normal. The scope was then slowly withdrawn, assessing all mucosal surfaces carefully. Preparation was excellent after a lot of irrigation and suctioning. Throughout the colon, from the very proximal ascending colon and area of the ileocecal valve all the way to the rectum, were multiple large ulcerations and with some intervening areas of normal mucosa. There was no active bleeding. I obtained multiple biopsies at the area of the ascending colon, transverse colon, descending colon, sigmoid colon and rectum. The rectum had ulcerations both proximally and distal, although with the intervening rectal mucosa appearing fairly normal other than some minimal friability. The scope was then withdrawn from the patient. She tolerated the procedure well and was returned to the recovery area in stable condition. IMPRESSION: Crohn's colitis. PLAN: The results of the biopsies will be checked. She will start prednisone 40 mg daily to try to give her some relief and I shall also add a mesalamine drug for her. I did review all this in detail with her including potential short-term and long-term side effects of the prednisone. I do suspect we have to start her on a biologic drug such as Skyrizi in the near future, given the severity of today's findings. I shall check a hepatitis B profile and tuberculosis test today before she goes home. I did advise her to start taking iron once or twice a day for the anemia. My office will be in touch with her to set up the followup. We may need to get some radiographic imaging of her small bowel to assess for any small-bowel Crohn's disease, although I did not see any on the exam today evaluating the very distal ileum. She was advised not to use any aspirin and NSAIDs long-term. We did review that this is a chronic condition that can have exacerbations. She understood. Again, I will be in touch with her to set up a followup appointment in the office as well as to potentially start her on a biologic agent. PROCEDURES PERFORMED: Colonoscopy to the cecum, terminal ileum with multiple biopsies. Full consent has been obtained from her for this, including risks of bleeding and perforation. MD KONRAD Metcalf/LUANA / [phone] RUDY
[2025-02-26 04:29] LABS: HBS Num1 10.26 mIU/mL (0-7.99); HBc Num1 0.55 S/CO (0.00-0.79); HBsAGNum1 0.50 S/CO (0.00-0.99); Hepatitis B Surface Antigen Negative (Negative)
[2025-02-26 05:06] LABS: HBS Num2 10.14 mIU/mL (0-7.99); HBS Num3 9.87 mIU/mL (0-7.99); ~Hepatitis B Surface Antibody GRAYZONE (Nonreactive)
== END 2025-02-25 17:45 | disposition home or self-care (01) ==
PROVIDERS: Nurse Practitioner; PCP Internal Medicine; Visit Provider Internal Medicine
PROC: 0DJD8ZZ Inspection of Lower Intestinal Tract, Via Natural or Artificial Opening Endoscopic (ICD-10-PCS; CPT 45378; principal; 2025-02-25 14:30)
DX: R19.7 Diarrhea, unspecified (principal); K50.10 Crohn's disease of large intestine without complications; R53.83 Other fatigue; R63.4 Abnormal weight loss; Z87.891 Personal history of nicotine dependence; F12.90 Cannabis use, unspecified, uncomplicated
CPT/HCPCS: 45380; 36415; 81025; 85610; 86704; 86706; 87340; 88305; J2003; J2704; J3010

== ENCOUNTER 2025-03-15 14:17 | Outpatient (REF) | payer OTHER, SELFPAY ==
--- OUTSIDE RECORDS SUMMARY | 2025-02-25 10:30 | XMS_ITS ---
Author Organization [facility] Address [address] [facility] [address] [place] [address] Care Team Providers Care Box Maker Wood Name Role Phone Rowan Hannah Primary Care Provider Unavailab Isma Gross [phone] REASON FOR VISIT diarrhea,wt loss,fatigue Encounters Encounter Location Date Provider Diagnosis [facility] [address] [place], [place] [id number] 02/25/2025 Isma Sharp Plan Of Treatment Next Appt Details Provider Name:Isma Sharp , 06/14/2025 09:40:00 AM, [address] [facility], Suite [facility], [place], [address], Progress Notes * REMINGTON DE DIOS MDOB:[birth year] (35 yo F)Acc No.[id number]:02/25/2025 COLON WITH MAC Patient: Tuan CARNEYCARLOS REMINGTON Lowery Provider: Tuan Sharp MD :1990 A ge:34 Y S ex:Female Date:02/25/2025 Address:[address] [place] [address] Pcp:Rowna Hannah Subjective: * Chief Complaints: * 1 . Diarrhea,wt loss,fatigue. * Medical History: Objective: * Vitals: Assessment: Plan: * Treatment: * * The named appointment provid er may or may not be the originator of this progress note, and it is not deemed complete until electronically signed by the appointment provider. Sign off status: Pending * Provider: Tuan Sharp MD Date: 0 02/25/2025 Generated for Corinnai ng/Faselmag/eTransmitting on: 0 03/15/2025 03:21 PM EDT
--- OUTSIDE RECORDS SUMMARY | 2025-03-09 14:49 | XMS_ITS ---
Author Organization [facility] Address [address] [place] [address] Care Team Providers Care Supervisor Shuttle Veneering Name Role Phone Rowan Hannah Primary Care Provider Unavailab Isma Gross [phone] REASON FOR VISIT Crohn's Medications Medication SIG (Take, Route, Frequency, Duration) Notes Start Date End Date Status Iron (Ferrous Sulfate) 325 (65 Fe) MG 1 tablet Orally daily for 30 days 03/14/2025 Active Encounters Encounter Location Date Provider Diagnosis [facility] [address] [facility] [address] [place] [address] 03/09/2025 Isma Sharp Plan Of Treatment Medication Medication Name Sig Start Date Stop Date Notes Iron (Ferrous Sulfate) 325 ( 65 Fe) MG 1 tablet Orally daily for 30 days 03/14/2025 Next Appt Details Provider Name:Isma Sharp , 06/14/2025 09:40:00 AM, [address] [facility], Suite [facility], [place], [address], Progress Notes * REMINGTON DE DIOS MDOB:[birth year] (35 yo F)Acc No.[id number]:03/09/2025 Patient: REMINGTON HAWKINS :1990 A ge:35 Y S ex:Female Address:[address] [place] [address], [address] * Refills Start Iron (Ferrous Sulfate) Tablet, 325 (65 Fe) MG, Orally, 30 Tablet, 1 tablet, daily, 30 days, Refills=11 Subjective: * Chief Complaints: * C rohn's * Medical History: * Surgical History: * Hospitalization/Major Diagno stic Procedure: * Medications: Objective: * Vitals: * Physical Examination: Assessment: Plan: * Treatment: * Procedure Codes: * * Date:
--- OUTSIDE RECORDS SUMMARY | 2025-03-15 15:21 | XMS_ITS | Patient Health Record ---
Author Organization [facility] Address [address] [place] [address] Care Team Providers [employer] Architect Name Role Phone Rowan Hannah Primary Care Provider Isma Richards [phone] Allergies No Known Allergies Results Component Value Reference Range Notes T4 Thyroxine Reviewed date:02/20/2025 05:51:49 PM Interpretation: Performing Lab:[address] [phone] Notes/Report: T4 Thyroxine 7.8 4.5-12.0 ug/dL Giardia Ag Stool EIA Reviewed date:02/24/2025 08:29:23 PM Interpretation: Performing Lab:[facility], [address] [place] [phone] Notes/Report: Giardia Ag Stool EIA SEE NOTE GIARDIA AG, EIA, STOOL Micro Number: [id number] Test Status: Final Specimen Source: Stool Specimen Quality: Adequate Giardia Result 1: Not Detected Reference Range: Not Detected NOTE: Due to intermittent shedding, one negative sample does not necessarily rule out the presence of a parasitic infection. THIS TEST WAS PERFORMED AT: [facility] [address] [place] [phone] DANIA LOVE MD Calprotectin, Fecal Reviewed date:03/09/2025 06:48:17 PM Interpretation: Performing Lab:[address] [phone] Notes/Report: Calprotectin, Fecal >8000 Reference Range: <50 Normal 50-120 Borderline >120 Elevated Calprotectin in Crohn's disease and ulcerative colitis can be five to several thousand times above the reference population (50 mcg/g or less). Levels are usually 50 mcg/g or less in healthy patients and with irritable bowel syndrome. Repeat testing in 4-6 weeks is suggested for borderline values. THIS TEST WAS PERFORMED AT: [facility] [address] [place] [address] PATY PLUMMER MD,PHD,DEBBIE GI PANEL Reviewed date:02/24/2025 08:30:30 PM Interpretation: Performing Lab:[facility], [address] [place] [phone] Notes/Report: Campylobacter Not Detected Not Detect. Plesiomonas shigelloides Not Detected Not Detect. Salmonella Not Detected Not Detect. Vibrio Not Detected Not Detect. Vibrio Cholerae Not Detected Not Detect. Yersinia enterocolitica Not Detected Not Detect. E. coli EAEC Not Detected Not Detect. E. coli EPEC Not Detected Not Detect. E. coli ETEC Not Detected Not Detect. E. coli STEC Not Detected Not Detect. E. coli O157 Not applicable Not Detect. E. coli containing the O157 antigen are a subset of Shiga-like toxin-producing E. coli (STEC). Shigella sp./EIEC Not Detected Not Detect. Cryptosporidium Not Detected Not Detect. Cyclospora cayetanensis Not Detected Not Detect. Entamoeba histolytica Not Detected Not Detect. Giardia lamblia Not Detected Not Detect. Adenovirus F 40/41 Not Detected Not Detect. Astrovirus Not Detected Not Detect. Norovirus GI/GII Not Detected Not Detect. Rotavirus A Not Detected Not Detect. Sapovirus Not Detected Not Detect. All results must be correlated with clinical findings. Negative results do not exclude the possibility of gastrointestinal infection and should not be used as the sole basis for diagnosis, treatment, or other management decisions. Virus, bacteria, and parasite nucleic acid may persist in vivo independently of organism viability. Additionally, some organisms may be carried asymptomatically. Detection of organism targets does not imply that the corresponding organisms are infectious or are the causative agents for clinical symptoms. There is a risk of false negative values due to the presence of sequence variants in the gene targets of the assay, amplification inhibitors in specimens, or inadequate numbers of organisms for amplification. The identification of several diarrheagenic E. coli pathotypes has historically relied upon phenotypic characteristics. This panel targets genetic determinants characteristic of most pathogenic strains, but may not detect all strains having phenotypic characteristics of a pathotype. The performance of this test has not been established for monitoring treatment of infection with any of the panel organisms. This assay is performed by Multiplexed PCR, utilizing the [employer] Array. Celiac Disease Panel Reviewed date:02/24/2025 08:28:54 PM Interpretation: Performing Lab:[facility], [address] [place] [phone] Notes/Report: Immunoglobulin A 785 47-310 mg/dL THIS TEST WAS PERFORMED AT: [facility] [address] [place] [phone] DANIA LOVE MD Transglutaminase IgA <1.0 Value Interpretation ----- <15.0 Antibody not detected > or = 15.0 Antibody detected Celiac Disease Panel Interp. SEE NOTE No serological evidence of celiac disease. Total serum IgA is elevated. Consider mucosal inflammatory conditions or underlying gammopathy. Complete Blood Count Auto Di ff Reviewed date:02/24/2025 08:28:30 PM Interpretation: Performing Lab:[facility], [address] [place] [phone] Notes/Report: White Blood Count 7.8 4.8-10.8 X10*3/uL [...] 0.000 0.0-0.012 X10*3/uL Erythrocyte Sedimentation Ra te Reviewed date:02/24/2025 08:28:16 PM Interpretation: Performing Lab:[facility], [address] [place] [phone] Notes/Report: Erythrocyte Sedimentation Rate 92 0-20 MM/HR Patients with polycythemia and many hemoglobin abnormalities may have depressed sed rates whereas patients with anemia may have elevated sed rates. Comprehensive Met. Panel Reviewed date:02/20/2025 05:51:08 PM Interpretation: Performing Lab:[facility], [address] [place] [phone] Notes/Report: Sodium 137 135-145 mmol/L Potassium 3.8 3.3-5.1 mmol/L Slight Hemolysis.Interpret result with caution. Chloride 103 96-108 mmol/L [...] Panel Reviewed date:02/20/2025 05:50:07 PM Interpretation: Performing Lab:[facility], [address] [place] [phone] Notes/Report: Bilirubin Direct 0.1 0.0-0.5 mg/dL IRON PROFILE Reviewed date:02/24/2025 08:28:06 PM Interpretation: Performing Lab:[facility], [address] [place] [phone] Notes/Report: Iron 23 30-160 mcg/dL Slight Hemolysis.Interpret result with caution. Total Iron Binding Capacity 156 228-428 mcg/dL Percent Iron Saturation 15 15-50 % Unsaturated Iron Binding 133 C Reactive Protein Reviewed date:02/24/2025 08:27:55 PM Interpretation: Performing Lab:[facility], [address] [place] [phone] Notes/Report: C Reactive Protein 6.27 < or = 0.50 mg/dL Vitamin B12 Reviewed date:02/20/2025 05:51:23 PM Interpretation: Performing Lab:[facility], [address] [place] [phone] Notes/Report: Vitamin B12 465 200-900 pg/mL NORMAL 200-900 PG/ML INDETERMINATE 160-199 PG/ML DEFICIENT < 160 PG/ML Folate Reviewed date:02/20/2025 05:51:16 PM Interpretation: Performing Lab:[facility], [address] [place] [phone] Notes/Report: Folate 10.7 > or = 4.0 ng/mL Reference Values: > or = 4.0 ng/mL < 4.0 ng/mL suggests folate deficiency Methotrexate, aminopterin and folinic acid (leucovorin) are chemotherapeutic agents whose molecular structures are similar to folate; therefore, the [employer] folate assay cannot be used for patients using these drugs. Thyroid Stimulating Hormone Reviewed date:02/20/2025 05:49:25 PM Interpretation: Performing Lab:[address] [phone] Notes/Report: Thyroid Stimulating Hormone 0.63 0.32-4.0 uIU/mL TSH 3rd Generation ([facility]) CDiff Gene PCR Reviewed date:02/24/2025 08:31:02 PM Interpretation: Performing Lab:[facility], [address] [place] [phone] Notes/Report: CDiff Gene PCR NEGATIVE Negative If C. difficile strongly suspected despite one negative test, a second test may be sent vs. empiric treatment for C. difficile infection. Prothrombin Time INR Reviewed date:02/26/2025 10:05:57 AM Interpretation: Performing Lab:[facility], [address] [place] [phone] Notes/Report: Prothrombin Time 13.8 10.9-12.4 SEC INTERNATIONAL NORM RATIO 1.2 0.9-1.1 INTERNATIONAL NORMALIZED RATIO (INR) REFERENCE RANGES Reference Range For patients not on anticoagulant therapy: 0.9 - 1.1 INR ranges for oral anticoagulant therapy: For prevention and treatment of venous thrombosis and pulmonary embolism: 2.0 - 3.0 For acute myocardial infarction with aspirin therapy: 2.0 - 3.0 For acute myocardial infarction without aspirin therapy: 3.0 - 4.0 For patients with mechanical prosthetic heart valves: 2.5 - 3.5 Ur Preg Test Reviewed date:02/26/2025 10:06:05 AM Interpretation: Performing Lab:[address] [phone] Notes/Report: Urine NEGATIVE NEGATIVE This test was developed to detect early . False negative results may occur after the 5th - 7th week of when using this test method. If clinically indicated, consider a serum hCG. Pathology Reviewed date:03/09/2025 06:57:45 PM Interpretation: Performing Lab:[facility], [address] [place] [phone] Notes/Report: Hepatitis B Profile Reviewed date:02/26/2025 10:05:51 AM Interpretation: Performing Lab:[address] [phone] Notes/Report: Hepatitis B Surface Antibody GRAYZONE Nonreactive GRAYZONE: 8.00 mIU/mL TO 11.99 mIU/mL THE IMMUNE STATUS OF THE INDIVIDUAL SHOULD BE FURTHER ASSESSED BY CONSIDERING OTHER FACTORS, SUCH CLINICAL STATUS, FOLLOW-UP TESTING, ASSOCIATED RISK FACTORS, AND THE USE OF ADDITIONAL DIAGNOSTIC INFORMATION. Hepatitis B Core Antibody Nonreactive Nonreactive Hepatitis B Surface Antigen Negative Negative Reason For Referral No Information Medications Medication SIG (Take, Route, Frequency, Duration) Notes Start Date End Date Status Mesalamine ER 0.375 GM 4 capsules in the morning Orally Once a day for 30 days Please call my office if not covered by her insurance. Thanks 02/25/2025 Active predniSONE 5 MG 8 of the 5mg pills(4 0mg) daily for 1 week, and then decrease by 1 pill(5mg) per week Orally Once a day for 56 days 02/25/2025 Active Iron (Ferrous Sulfate) 325 (65 Fe) MG 1 tablet Orally daily for 30 days 03/14/2025 Active Loperamide HCl 2 MG 1 or 2 [...] Status W/U Status Risk Notes Problem Diarrhea (89344955) Diarrhea (R19.7) Active confirmed Problem Weight loss (296246720) Weight loss (R63.4) Active confirmed Problem Fatigue (02845524) Other fatigue (R53.83) Active confirmed Problem Crohn's disease of large bowel (0273631) Crohn''s disease of colon without complication (K50.10) Active confirmed Vital Signs Temperature 98.3 degrees Fahrenheit 02/20/2025 Blood pressure diastolic 01 mm Hg 02/20/2025 Height 62 in 02/20/2025 Blood pressure systolic 001 mm Hg 02/20/2025 Weight 139.4 lbs 02/20/2025 BMI 25.49 kg/m2 02/20/2025 Procedures Procedure Date Ordered Date Performed Result Body Sit e COLONOSCOPY 02/20/2025 N/A Encounters Encounter Location Date Provider Diagnosis [facility] Outpatient [address], [place] [phone] [facility] [address] [place] [phone] 02/20/2025 Isma Sharp Diarrhea R19.7 ; Weight loss R63.4 and Other fatigue R53.83 [facility] [address] [place] [phone] 03/09/2025 Isma Sharp [facility] [address] [place] [phone] 02/21/2025 Isma Sharp [facility] [address] [place] [phone] 02/25/2025 Isma Sharp [facility] [address] [place] [phone] 02/26/2025 Isma Sharp [facility] [address] [place] [phone] 02/26/2025 Isma Sharp Crohn''s disease of colon without complication K50.10 [facility] [address] [place] [phone] 03/01/2025 Isma Sharp Assessments Encounter Date Diagnosis (ICD [...] to keep you advised of her progress. 02/26/2025 Crohn''s disease of colon without complication (ICD-10 - K50.10) 02/20/2025 Other fatigue (ICD-10 - R53.83) Given [...] 02/20/2025 CDiff with Reflex to PCR 02/20/2025 T Spot TB 02/26/2025 Next Appt Details Provider Name:Isma Sharp , 06/14/2025 09:40:00 AM, [address] [place] [address], [address], [place], [address], Insurance Providers Payer Name Payer Address Payer Phone Subscriber Number Group Number Insured Name Patient Relationship to Insured Coverage Start Date Coverage End Date [facility] [address] [place] [phone] [id number] DORIE Ridley [place] Self - patient is the insured Medical (General) History Medical History History ICD Code Denies [place],DM,CVA,Lung disease,renal dise ase
[2025-03-19 13:18] LABS: TS Negative Control PASSED; TS Panel A 0; TS Panel B 0; TS Positive Control PASSED; TSpotTB Negative (NEGATIVE)
== END 2025-03-15 14:18 | disposition home or self-care (01) ==
LOC: HO.LAB 14:17
PROVIDERS: PCP Internal Medicine; Visit Provider Internal Medicine
DX: K50.10 Crohn's disease of large intestine without complications (principal)
CPT/HCPCS: 36415; 86481